=== PATIENT | male | born 1990 | race African-American/Black ===

== ENCOUNTER 2019-01-29 21:06 | Emergency (ER) | payer OTHER ==
[~2019-01-29] VITALS: Ht 185.4 cm; Wt 83.0 kg
[2019-01-29] MEDS ORDERED: IBUPROFEN 800MG TABLET PO ONE (23:00)
[2019-01-29 23:25] VITALS: BP 118/73
== END 2019-01-29 23:26 | disposition home or self-care (01) ==
LOC: ER 21:06 → EDBD 21:06 → ER 23:26
DX: B34.9 Viral infection, unspecified (principal); R51 Headache
CPT/HCPCS: 99282